=== PATIENT | female | born 1995 | race Caucasian/White ===

== ENCOUNTER 2016-10-04 02:58 | Emergency (ER) | payer BC, MEDICAID ==
[2016-10-04 03:04] VITALS: BP 131/82
[2016-10-04] MEDS ORDERED: Fluorescein 1 MG Ophth Strip EYELF ONE (03:10)
[2016-10-04] MEDS ORDERED: Proparacaine 0.5% Ophth Soln 15 ML Bottle EYELF PRN (03:11)
--- NOTE | 2016-10-04 08:05 | ER ---
Date of Service: 10/04/2016 SUBJECTIVE: Adrianna presents to the emergency room with complaints of discomfort to her left eye. The patient states that she was petting her cat and she states that she got something in her left eye. Her boyfriend looked and could see a cat hair in her eye or either a hair or an injury to her left eye. The patient states that this happened approximately 15 minutes prior to arriving to the emergency room. She did take a Benadryl prior to coming to the ER. PAST MEDICAL HISTORY: None. MEDICATIONS: Albuterol. ALLERGIES: NKDA. REVIEW OF SYSTEMS: Denies any acute vision loss or change. Denies any injury or any problems other than what is isolated to her left eye. PHYSICAL EXAMINATION: General: This is a 20-year-old female patient, in no acute distress. Vital Signs: Blood pressure is 131/82, pulse rate is 92, temperature is 36.8, respiratory rate 16, O2 saturations 99%. Skin: Warm, pink, and dry. HEENT: Head is normocephalic, atraumatic. Eyes: PERRLA. Extraocular movements are intact. There did not appear to be any foreign body in the left eye. Evaluation of the underside of the eyelid did not reveal any retained foreign body. There was some mild ecchymosis but no corneal abrasion or other pathology noted to the left eye with fluorescein stain. Visual acuity is 20/20 for her post examination. Remainder of her physical examination is within normal limits. ASSESSMENT: Allergic conjunctivitis. PLAN: The patient will be discharged. Continue with Benadryl as needed for eye irritation. Advised to follow up in the eye clinic of choice tomorrow for a slit-lamp examination if continuing to have problems. All questions were answered. MWK: 10/04/2016 03:26:37 MODL: 10/04/2016 04:07:45 /[id number]
== END 2016-10-04 03:28 | disposition home or self-care (01) ==
LOC: VM.ED 02:58
DX: H10.12 Acute atopic conjunctivitis, left eye (principal)
CPT/HCPCS: 99283